=== PATIENT | female | born 1930 | race Caucasian/White ===

== ENCOUNTER 2017-05-21 11:27 | Outpatient (CLI) | payer OTHER ==
[~2017-05-21] VITALS: Ht 152.4 cm; Wt 63.5 kg
[~2017-05-21 11:27] MED LIST: AMOX1TAB12 PO; ASA-EC81 MG PO; ASA81 MG PO; ATENOLOL50 MG PO; CEFTIN500 MG PO; COZAAR100 MG PO; CRESTOR20 MG; CRESTOR20 MG PO; DICLOFENAC SODI75 MG PO; DYAZIDE 37.5-21 EACH PO; GLUMETZA1000 MG PO; LIPITOR40 MG PO; MAXZIDE 37.5 M1 EACH; METFORMIN; METFORMIN HCL500 MG PO; PLAVIX 75MG PO; PLAVIX75 MG PO; PROTONIX40 MG PO; PYRIDIUM100 MG PO; SYNTHROID50 MCG PO; Synthroid PO; TENORMIN50 M1 PO; XALANTAN
== END 2017-05-21 11:45 | disposition home or self-care (01) ==
LOC: OFIC 805 11:27
DX: R42 Dizziness and giddiness (principal)

== ENCOUNTER → 2017-09-05 | Emergency (ER) | payer OTHER ==
[~2017-09-05] VITALS: Ht 152.4 cm; Wt 61.2 kg
[~2017-09-05] MED LIST changes: +ULTRACET PO
== END | disposition home or self-care (01) ==
LOC: ER 08:59
DX: S70.02XA Contusion of left hip, initial encounter (principal); S80.12XA Contusion of left lower leg, initial encounter; R55 Syncope and collapse; W18.09XA Striking against other object with subsequent fall, initial encounter; Y93.89 Activity, other specified; Y92.018 Other place in single-family (private) house as the place of occurrence of the external cause; Y99.8 Other external cause status

== ENCOUNTER 2017-09-09 07:37 | Inpatient (IN) | payer OTHER ==
[~2017-09-09] VITALS: Ht 152.4 cm; Wt 68.0 kg
[2017-09-11] MEDS ORDERED: ASA-EC81 MG PO (09:55)
[2017-09-11] MEDS ORDERED: CRESTOR20 MG PO (09:56)
[2017-09-11] MEDS ORDERED: SYNTHROID50 MCG PO (09:56)
[2017-09-11] MEDS ORDERED: LOSARTAN POTAS100 MG PO (09:56)
[2017-09-11] MEDS ORDERED: PLAVIX75 MG PO (09:56)
[2017-09-11] MEDS ORDERED: ATENOLOL50 MG PO (09:56)
[2017-09-11] MEDS ORDERED: ZANTAC150 MG PO (09:56)
[2017-09-11] MEDS ORDERED: JANUMET 50-1,01 EACH PO (09:57)
[2017-09-13] MEDS ORDERED: XARELTO10 MG PO (09:43)
[2017-09-13] MEDS ORDERED: ULTRACET PO (09:44)
== END 2017-09-13 13:15 | DRG 470 ==
LOC: ER 07:37 → SEC-K 09:39 → MEDI 09:39 → SURH 12:16 → MEDI 13:48 → MEDJ 13:48 → MEDI 09-13 13:15
PROVIDERS: Orthopaedic Surgery
PROC: BR2CZZZ Computerized Tomography (CT Scan) of Pelvis (ICD-10-PCS; 2017-09-09)
PROC: 30233R1 Transfusion of Nonautologous Platelets into Peripheral Vein, Percutaneous Approach (ICD-10-PCS; 2017-09-09)
PROC: B246ZZZ Ultrasonography of Right and Left Heart (ICD-10-PCS; 2017-09-09)
PROC: 0MTM0ZZ Resection of Left Hip Bursa and Ligament, Open Approach (ICD-10-PCS; 2017-09-10)
PROC: 0SRS0JZ Replacement of Left Hip Joint, Femoral Surface with Synthetic Substitute, Open Approach (ICD-10-PCS; principal; 2017-09-10 13:00)
DX: S72.032A Displaced midcervical fracture of left femur, initial encounter for closed fracture (principal); D62 Acute posthemorrhagic anemia; M80.052A Age-related osteoporosis with current pathological fracture, left femur, initial encounter for fracture; N39.0 Urinary tract infection, site not specified; I13.10 Hypertensive heart and chronic kidney disease without heart failure, with stage 1 through stage 4 chronic kidney disease, or unspecified chronic kidney disease; N18.3 Chronic kidney disease, stage 3 (moderate); D63.1 Anemia in chronic kidney disease; I25.10 Atherosclerotic heart disease of native coronary artery without angina pectoris; W18.39XA Other fall on same level, initial encounter; Y93.89 Activity, other specified; Y92.89 Other specified places as the place of occurrence of the external cause; Y99.8 Other external cause status; Z79.02 Long term (current) use of antithrombotics/antiplatelets; E03.8 Other specified hypothyroidism; E78.4 Other hyperlipidemia; M16.12 Unilateral primary osteoarthritis, left hip; M70.62 Trochanteric bursitis, left hip; B96.20 Unspecified Escherichia coli [E. coli] as the cause of diseases classified elsewhere; E11.22 Type 2 diabetes mellitus with diabetic chronic kidney disease; Z95.1 Presence of aortocoronary bypass graft

== ENCOUNTER 2017-10-25 13:27 | Emergency (ER) | payer OTHER ==
[~2017-10-25] VITALS: Ht 152.4 cm; Wt 63.5 kg
[~2017-10-25 13:27] MED LIST changes: +JANUMET 50-1,01 EACH PO; +LOSARTAN POTAS100 MG PO; +XARELTO10 MG PO; +ZANTAC150 MG PO
== END 2017-10-25 19:12 | disposition home or self-care (01) ==
LOC: ER 13:27
DX: M25.572 Pain in left ankle and joints of left foot (principal); Z96.642 Presence of left artificial hip joint

== ENCOUNTER 2018-11-17 11:51 | Emergency (ER) | payer OTHER ==
[~2018-11-17] VITALS: Ht 165.1 cm; Wt 54.4 kg
== END 2018-11-17 14:51 | disposition home or self-care (01) ==
LOC: ER 11:51
DX: B34.9 Viral infection, unspecified (principal); N39.0 Urinary tract infection, site not specified; B96.29 Other Escherichia coli [E. coli] as the cause of diseases classified elsewhere